=== PATIENT | female | born 2000 | race Caucasian/White ===

== ENCOUNTER → 2020-11-19 | Outpatient (CLI) | payer OTHER ==
--- NOTE | 2020-11-20 07:53 | XR ---
EXAMINATION TYPE: XR wrist complete LT DATE OF EXAM: 11/19/2020 CLINICAL HISTORY: pain TECHNIQUE: Frontal, lateral and oblique images of the left wrist are obtained. Scaphoid views also s ubmitted. COMPARISON: None. FINDINGS: There is no acute fracture/dislocation evident. The joint spaces appear within normal sosa its. The overlying soft tissue appears unremarkable. IMPRESSION: There is no acute fracture or dislocation seen. ICD 10 NO FRACTURE, INITIAL EVALUATION
--- NOTE | 2020-11-20 07:54 | XR ---
EXAMINATION TYPE: XR knee 4V LT DATE OF EXAM: 11/19/2020 CLINICAL HISTORY: pain TECHNIQUE: Three views of the left knee are obtained. Patellar sunrise view is also submitted. COMPARISON: None. FINDINGS: There is no acute fracture/dislocation. The tri-compartment joint spaces appear within no rmal limits. The overlying soft tissue appears unremarkable. IMPRESSION: There is no acute fracture or dislocation ICD 10 NO FRACTURE, INITIAL EVALUATION
== END | disposition home or self-care (01) ==
LOC: RAD 16:38
PROVIDERS: ATTEND Nurse Practitioner Family
DX: M25.532 Pain in left wrist (principal); M25.562 Pain in left knee

== ENCOUNTER → 2021-04-09 | Outpatient (CLI) | payer OTHER ==
--- NOTE | 2021-04-09 10:34 | US ---
EXAMINATION TYPE: US pelvis complete transvag DATE OF EXAM: 04/09/2021 COMPARISON: NONE CLINICAL HISTORY: R10.2 PELVIC PAIN,N91.2 AMENORRHEA. TECHNIQUE: . Transabdominal sonographic images of the pelvis were acquired. Transvaginal sonographi c images were medically necessary to better assess the following anatomy: Ovaries Date of LMP: Last month some time- patient states she has irregular cycles EXAM MEASUREMENTS: Uterus: 5.5 x 2.1 x 2.7 cm Endometrial Stripe: 0.3 cm Right Ovary: 2.1 x 2.0 x 1.8 cm Left Ovary: 2.4 x 1.9 x 1.7 cm 1. Uterus: Anteverted wnl 2. Endometrium: wnl 3. Right Ovary: Multiple tiny follicles visualized 4. Left Ovary: Multiple tiny follicles visualized 5. Bilateral Adnexa: wnl 6. Posterior cul-de-sac: wnl IMPRESSION: Unremarkable transpelvic ultrasound.
== END | disposition home or self-care (01) ==
LOC: RADUSWWP 09:33
PROVIDERS: ATTEND Obstetrics & Gynecology
DX: N91.2 Amenorrhea, unspecified (principal)
CPT/HCPCS: 76830; 76856

== ENCOUNTER → 2022-01-10 | Outpatient (CLI) | payer OTHER ==
--- NOTE | 2022-01-10 13:31 | US ---
EXAMINATION TYPE: US thyroid st tissue head/neck DATE OF EXAM: 01/10/2022 COMPARISON: NONE CLINICAL HISTORY: E01.1 Goiter, R59.0 enlarged lymph nodes. Enlargement of neck for the past few mari hs. GLAND SIZE: Right Lobe: 4.8 x 1.6 x 1.6 cm Overall Parenchyma: homogenous Left Lobe: 4.1x 1.5x 1.4 cm Overall Parenchyma: homogeneous Isthmus Thickness: 0.3 cm NODULES RIGHT: # of nodules measured on right: 0 LEFT: # of nodules measured on left: 0 ISTHMUS: # of nodules measured in the isthmus: 0 Bilateral neck scanned, Large lymph node seen right neck measuring 1.7 x 1.2 x 0.7cm There is homogeneous somewhat small thyroid without discrete nodule. A right-sided prominent lymph no de measures subcentimeter short axis favored benign. IMPRESSION: Normal-sized thyroid without worrisome thyroid nodule.
== END | disposition home or self-care (01) ==
LOC: RADUSWWP 12:55
PROVIDERS: ATTEND Family Medicine
DX: E01.0 Iodine-deficiency related diffuse (endemic) goiter (principal); R59.0 Localized enlarged lymph nodes
CPT/HCPCS: 76536